=== PATIENT | male | born 1970 | race Caucasian/White ===

== ENCOUNTER 2018-04-07 16:12 | Observation (INO) | payer OTHER ==
[2018-04-07] MEDS ORDERED: ACETAMINOPHEN 325 MG TAB PO (17:00)
[2018-04-07] MEDS ORDERED: NACL 0.9% 3 ML SYG IV (17:00)
[2018-04-07] MEDS ORDERED: HYDROCODONE/APAP (5/325) TAB PO (17:00)
[2018-04-07 18:10] LABS: HEMOGLOBIN A1C 5.7 % (0-5.9)
[2018-04-07 18:20] LABS: ALANINE AMINOTRANSFERASE 25 IU/L (13-69); ALBUMIN 4.1 g/dl (3.3-4.9); ALBUMIN/GLOBULIN RATIO 1.41; ALKALINE PHOSPHATASE 87 IU/L (42-121); ANION GAP 12 (8-16); ASPARTATE AMINO TRANSFERASE 25 IU/L (15-46); BILIRUBIN,INDIRECT 0.3 mg/dl (0-1.1); BILIRUBIN,TOTAL 0.3 mg/dl (0.2-1.3); BLOOD UREA NITROGEN 12 mg/dl (7-20); CALCIUM 9.6 mg/dl (8.4-10.2); CARBON DIOXIDE 27 mmol/L (21-31); CHLORIDE 102 mmol/L (97-110); CREATINE KINASE 77 IU/L (23-200); CREATININE 0.86 mg/dl (0.61-1.24); GLUCOSE 91 mg/dl (70-220); MAGNESIUM 2.2 mg/dl (1.7-2.5); POTASSIUM 4.1 mmol/L (3.5-5.1); SODIUM 137 mmol/L (135-144)
[2018-04-07] MEDS ORDERED: NITROGLYCERIN (SL) 0.4 MG TAB SL (18:30)
[2018-04-07 18:32] LABS: CK INDEX 0.6; CK-MB 0.46 ng/ml (0.0-2.4); TROPONIN-I < 0.012 ng/ml (0.000-0.120)
[2018-04-07 18:37] LABS: FREE T4 (FREE THYROXINE) 0.99 ng/dl (0.64-1.79)
[2018-04-07] MEDS: HYDROCODONE/APAP (10/325) TAB PO (19:03)
[2018-04-07] MEDS: ALBUTEROL/IPRATROPIUM (NEB) 3 ML AMP HHN (20:00)
[2018-04-07] MEDS: NICOTINE (21 MG/24 HR) PATCH TRANSDERM (20:25)
[2018-04-07] MEDS: ENOXAPARIN 40 MG/0.4 ML SYG SC (20:26)
[2018-04-07] MEDS: LORAZEPAM 2 MG INJ IV (20:32)
[2018-04-07] MEDS: CYCLOBENZAPRINE 10 MG TAB PO (21:00)
[2018-04-07] MEDS ORDERED: ALBUTEROL HFA 8 GM INHALER INH (22:00)
[2018-04-08] MEDS: HYDROCODONE/APAP (10/325) TAB PO ×3 (00:52→14:30)
[2018-04-08 06:00] LABS: ADD MAN DIFF? NO
[2018-04-08 06:20] LABS: BASOPHILS % 0.3 % (0.0-2.0); EOSINOPHILS # 0.1 10^3/ul (0.0-0.5); EOSINOPHILS % 1.1 % (0.0-7.0); HEMATOCRIT 39.3 % (42.0-52.0); HEMOGLOBIN 13.5 g/dl (14.0-18.0); LYMPHOCYTES % 25.4 % (15.0-51.0); MEAN CORPUSCULAR HEMOGLOBIN 32.3 pg (29.0-33.0); MEAN CORPUSCULAR HGB CONC 34.4 g/dl (32.0-37.0); MEAN PLATELET VOLUME 9.9 fl (7.4-10.4); MONOCYTE # 0.8 10^3/ul (0.3-0.9); MONOCYTES % 6.4 % (0.0-11.0); NEUTROPHIL # 7.9 10^3/ul (1.6-7.5); NEUTROPHILS % 66.4 % (39.0-77.0); PLATELET COUNT 267 10^3/UL (140-415); RED BLOOD COUNT 4.18 10^6/ul (4.70-6.10); RED CELL DISTRIBUTION WIDTH 13.5 % (11.5-14.5)
[2018-04-08 06:20] LABS: WHITE BLOOD COUNT 11.9 10^3/ul (4.8-10.8)
[2018-04-08 06:44] LABS: CK-MB 0.62 ng/ml (0.0-2.4); TROPONIN-I < 0.012 ng/ml (0.000-0.120)
[2018-04-08 06:45] LABS: ANION GAP 10 (8-16); BLOOD UREA NITROGEN 16 mg/dl (7-20); CALCIUM 9.2 mg/dl (8.4-10.2); CARBON DIOXIDE 29 mmol/L (21-31); CHLORIDE 105 mmol/L (97-110); CREATININE 0.89 mg/dl (0.61-1.24); GLUCOSE 96 mg/dl (70-220); POTASSIUM 4.2 mmol/L (3.5-5.1); SODIUM 140 mmol/L (135-144)
[2018-04-08 06:55] LABS: CHOL/HDL RATIO 4.9 RATIO; CHOLESTEROL 173 mg/dl (100-200); CREATINE KINASE 64 IU/L (23-200); HDL CHOLESTEROL 35 mg/dl (28-71); LDL CHOLESTEROL,CALCULATED 116 mg/dl; TRIGLYCERIDES 112 mg/dl (0-149)
[2018-04-08 06:55] LABS: PHOSPHORUS 4.6 mg/dl (2.5-4.9)
[2018-04-08] MEDS: ASPIRIN 81 MG TAB PO (08:36)
[2018-04-08] MEDS: CYCLOBENZAPRINE 10 MG TAB PO ×2 (08:36→14:29)
[2018-04-08] MEDS: REGADENOSON 0.4 MG/5 ML SYG (11:20)
[2018-04-08] MEDS: NICOTINE (21 MG/24 HR) PATCH TRANSDERM (14:29)
[2018-04-08] MEDS: ENOXAPARIN 40 MG/0.4 ML SYG SC (14:33)
== END 2018-04-08 18:51 | disposition home or self-care (01) ==
LOC: 6WM 16:12
DX: R07.89 Other chest pain (principal); J44.9 Chronic obstructive pulmonary disease, unspecified; G89.29 Other chronic pain; M54.5 Low back pain; F17.200 Nicotine dependence, unspecified, uncomplicated; Z79.82 Long term (current) use of aspirin
CPT/HCPCS: 78452; 80048; 80053; 80061; 82550; 82553; 83036; 83735; 84100; 84439; 84443; 84484; 85025; 93005; 93017; 93306; 99217; G0378

== ENCOUNTER 2018-08-28 06:00 | Emergency (ER) | payer OTHER | END 2018-08-28 07:10 | disposition home or self-care (01) | LOC: FTE 06:00 | DX: R21 Rash and other nonspecific skin eruption (principal) | CPT/HCPCS: 99283; Z7502 ==